=== PATIENT | female | born 2000 | race Caucasian/White ===

== ENCOUNTER 2021-05-21 12:22 | Emergency (ER) | payer BC ==
[~2021-05-21] VITALS: Ht 170.2 cm; Wt 72.7 kg
[2021-05-21 12:28] VITALS: PULSE 102; TEMP 98.7
[2021-05-21] MEDS ORDERED: ZOFRAN ODT4 MG PO (13:49)
== END 2021-05-21 14:01 | disposition home or self-care (01) ==
LOC: COL.ER 12:22
DX: S09.90XA Unspecified injury of head, initial encounter (principal); W19.XXXA Unspecified fall, initial encounter; W22.8XXA Striking against or struck by other objects, initial encounter